=== PATIENT | female | born 1960 ===

== ENCOUNTER 2023-04-15 14:17 | Outpatient (CLI) | payer BC | END 2023-04-15 14:18 | disposition home or self-care (01) | LOC: BICMAMMO 14:17 | PROVIDERS: ATTEND Nurse Practitioner Family | DX: Z12.31 Encounter for screening mammogram for malignant neoplasm of breast (principal); Z91.89 Other specified personal risk factors, not elsewhere classified | CPT/HCPCS: 77063; 77067 ==